=== PATIENT | female | born 1955 | race Caucasian/White ===

== ENCOUNTER 2020-02-13 11:03 | Outpatient (CLI) | payer MEDICARE, SELFPAY ==
--- NOTE | 2020-02-13 11:21 | MM_ITS ---
WS: [id number] BILATERAL DIGITAL SCREENING MAMMOGRAM WITH CAD CLINICAL INFORMATION: SCR HISTORY: Screening mammogram. Bilateral breast soreness COMPARISON: TECHNIQUE: Bilateral CC and MLO. FINDINGS: The breast are composed of extremely dense tissue, which can limit the detection of small underlying mass lesions. No suspicious focal mass, asymmetry, calcifications, or architectural distortion. No ev idence of malignancy. Lucent centered calcifications MM/[place] [id number] IMPRESSION: BI-RADS: 2-Benign FOLLOW UP: 1 Year Follow-up Recommend return to annual screening mammography.
== END 2020-02-13 11:04 | disposition home or self-care (01) ==
LOC: RADSHAW 11:08
PROVIDERS: PCP Internal Medicine; Visit Provider Internal Medicine
DX: Z12.31 Encounter for screening mammogram for malignant neoplasm of breast (principal)
CPT/HCPCS: 77067

== ENCOUNTER 2020-05-26 14:31 | Outpatient (CLI) | payer MEDICARE, SELFPAY ==
--- NOTE | 2020-05-26 14:39 | XR_ITS ---
WS: [id number] SCREENING DEXA SCAN [facility] CLINICAL INFORMATION: STATUS ASYMPTOMATIC POSTMENOPAUSAL COMPARISON: None. FINDINGS: The L1-L4 bone mineral density measures 1.085 g/cm2. This corresponds to a T score score of -0.8 and Z score of 0.8. Left femoral neck bone mineral density measures 0.911 g/cm2. This corresponds to a T score of -0.8 an d Z score of 0.5. Right femoral neck bone mineral density measures 0.880 g/cm2. This corresponds to a T score -1.0of an d Z score of 0.2. Mean femoral neck bone mineral density measures 0.896 g/cm2. This corresponds to a T score of -0.9 an d Z score of 0.4. XR/XR DEXA axial skeleton* [id number] IMPRESSION: Osteopenia at the lower end of the range. Patient's FRAX calculated 10 year probability for major osteoporotic fracture i s 10.5 % and osteoporotic hip fracture is 1.5%.
== END 2020-05-26 14:32 | disposition home or self-care (01) ==
LOC: RADWPI 14:35
PROVIDERS: PCP Internal Medicine; Visit Provider Internal Medicine
DX: Z78.0 Asymptomatic menopausal state (principal); M85.88 Other specified disorders of bone density and structure, other site
CPT/HCPCS: 77080

== ENCOUNTER 2021-03-08 16:02 | Outpatient (CLI) | payer MEDICARE, SELFPAY ==
--- NOTE | 2021-03-08 16:18 | XR_ITS ---
WS: [email or web address] CERVICAL SPINE 3 VIEWS HISTORY: PAIN IN NECK, DEGENERATIVE DISC DISEASE COMPARISON: None available. Straightening and reversal normal cervical lordosis. Reversal is centered at C5. Severe disc space na rrowing at C5-6 and moderate at C4-5 and C6-7. No fracture. Facet joints are narrowed throughout. Mild S-shaped curvature cervical spine. Lateral masses are aligned. Odontoid is intact. XR/XR cervical spine 3V* [id number] IMPRESSION: 1. Reversal of the normal cervical lordosis. 2. Moderate to severe degenerative disc disease in the mid cervical spine. Mos t significant at C5-6.
== END 2021-03-08 16:03 | disposition home or self-care (01) ==
PROVIDERS: PCP Internal Medicine; Visit Provider Internal Medicine
DX: M47.892 Other spondylosis, cervical region (principal); M54.2 Cervicalgia
CPT/HCPCS: 72040

== ENCOUNTER 2021-04-01 08:38 | Outpatient (CLI) | payer MEDICARE, SELFPAY ==
--- NOTE | 2021-04-01 08:53 | MR_ITS ---
WS: [email or web address] MRI of the cervical spine, 04/01/2021 Clinical Data: DEGENERATION OF CERVICAL INTERVERTEBRAL DISC Comparison: Cervical spine, 03/08/2021 Findings: There is loss of the normal lordotic curvature. There is disc space narrowing at C4-C5, C5-C6 and C6 -C7. The spinal cord is normal in size with no cysts or masses. There is no prevertebral swelling. No compression fractures are seen. C2-C3: No canal stenosis, disc bulge or foraminal narrowing is seen. C3-C4: No canal stenosis, disc bulge or foraminal narrowing is seen. C4-C5: There is a disc osteophyte complex bulging into the central canal. C5-C6: There is a broad-based disc osteophyte complex bulging into the central canal. C6-C7: There is a broad-based disc osteophyte complex bulging into the central canal. C7-T1: No canal stenosis, disc bulge or foraminal narrowing is seen. MR/MR cervical spin wo con* [id number] Impression: 1. Degenerative disc narrowing from C4-C5 through C6-C7. 2. Loss of normal lordotic curvature from C3-4 through C6. 3. Multilevel disc osteophyte complex bulging into the central canal from C4 th rough C7.
== END 2021-04-01 08:39 | disposition home or self-care (01) ==
LOC: RADWPI 08:41
PROVIDERS: PCP Internal Medicine; Visit Provider Internal Medicine
DX: M50.30 Other cervical disc degeneration, unspecified cervical region (principal); M25.78 Osteophyte, vertebrae
CPT/HCPCS: 72141

== ENCOUNTER 2021-05-25 13:43 | Outpatient (CLI) | payer MEDICARE, SELFPAY ==
--- NOTE | 2021-05-25 13:52 | MM_ITS ---
WS: [email or web address] BILATERAL SCREENING DIGITAL MAMMOGRAM WITH CAD HISTORY: SCREENING COMPARISON: 02/13/2020, 02/06/2019 Bilateral CC and MLO views submitted. Computer aided detection analyzed. Breast composition: The breasts are heterogeneously dense, which may obscure small masses. No suspici ous masses, microcalcifications or architectural distortion. Benign calcifications in each breast. MM/[place] [id number] IMPRESSION: BI-RADS: 2-Benign FOLLOW UP: 1 Year Follow-up
== END 2021-05-25 13:44 | disposition home or self-care (01) ==
LOC: RADSHAW 13:50
PROVIDERS: PCP Internal Medicine; Visit Provider Internal Medicine
DX: Z12.31 Encounter for screening mammogram for malignant neoplasm of breast (principal)
CPT/HCPCS: 77067

== ENCOUNTER 2022-07-13 09:08 | Outpatient (CLI) | payer MEDICARE, SELFPAY ==
--- NOTE | 2022-07-13 09:15 | MM_ITS ---
WS: [email or web address] VIEWS: MLO and CC views both breasts. 3D digital tomosynthesis is also included in this exam. Comparison made with prior exam of 10/27/2015, 12/07/2016, 12/13/2017, 02/06/2019, 02/13/2020, 05/25/2021.. Findings: There was no sign of mass, architectural distortion or suspicious calcification in either breast. He terogeneously dense breasts. MM/[place] [id number] Impression: BI-RADS: 2-Benign FOLLOW-UP: 1 Year Follow-up This mammogram was also analyzed by the Computer Aided Detection System R2 Imag e Service Correspondent.
== END 2022-07-13 09:09 | disposition home or self-care (01) ==
PROVIDERS: PCP Internal Medicine; Visit Provider Internal Medicine
DX: Z12.31 Encounter for screening mammogram for malignant neoplasm of breast (principal)
CPT/HCPCS: 77063; 77067

== ENCOUNTER → 2022-11-01 14:47 | Outpatient (BNVA) | payer MEDICARE, SELFPAY | PROVIDERS: PCP Internal Medicine; Visit Provider Dermatology | DX: L72.0 Epidermal cyst (principal); L82.1 Other seborrheic keratosis; I83.93 Asymptomatic varicose veins of bilateral lower extremities; L81.4 Other melanin hyperpigmentation; D23.71 Other benign neoplasm of skin of right lower limb, including hip; L73.8 Other specified follicular disorders; Z12.83 Encounter for screening for malignant neoplasm of skin; D22.39 Melanocytic nevi of other parts of face | CPT/HCPCS: 99213 ==

== ENCOUNTER → 2023-04-18 09:53 | Outpatient (BNVA) | payer MEDICARE, SELFPAY | PROVIDERS: PCP Internal Medicine; Visit Provider Podiatrist Foot & Ankle Surgery | DX: R22.41 Localized swelling, mass and lump, right lower limb (principal) | CPT/HCPCS: 73610; 99203 ==

== ENCOUNTER 2023-07-25 09:51 | Outpatient (CLI) | payer MEDICARE, SELFPAY ==
--- NOTE | 2023-07-25 09:59 | MM_ITS ---
WS: [email or web address] SCREENING DIGITAL TOMOSYNTHESIS MAMMOGRAM WITH CAD HISTORY: SCREENING COMPARISON: 07/13/2022 and 05/25/2021 Bilateral CC and MLO with tomosynthesis views submitted. Synthetic mammography reviewed. Computer aid ed detection analyzed. Breast composition: The breasts are heterogeneously dense, which may obscure small masses. No suspici ous masses, microcalcifications or architectural distortion. Benign RIGHT breast calcification. IMPRESSION: MM/[place] [id number] BI-RADS: 2-Benign FOLLOW UP: 1 Year Follow-up
== END 2023-07-25 09:52 | disposition home or self-care (01) ==
LOC: RAD 09:51
PROVIDERS: PCP Internal Medicine; Visit Provider Internal Medicine
DX: Z12.31 Encounter for screening mammogram for malignant neoplasm of breast (principal)
CPT/HCPCS: 77063; 77067

== ENCOUNTER 2023-09-26 14:10 | Outpatient (CLI) | payer MEDICARE, SELFPAY ==
--- NOTE | 2023-09-26 14:17 | XR_ITS ---
WS: [email or web address] Left knee, 4 views, 09/26/2023 Clinical Data: PAIN IN L KNEE Comparison: Left knee, 01/10/2015 Findings: No fractures or dislocations are seen. There is medial joint compartment narrowing with small spurs o f the medial femoral condyle and medial tibial plateau. The patella shows a small posterior superior spur. The soft tissues are unremarkable. XR/XR knee LT 4V [id number] Impression: Minimal osteoarthritis of the left knee. Kellgren-Sumeet Classification: grade 2 (minimal): definite osteophytes and p ossible joint space narrowing
== END 2023-09-26 14:11 | disposition home or self-care (01) ==
LOC: RAD 14:15
PROVIDERS: PCP Internal Medicine; Visit Provider Internal Medicine
DX: M17.12 Unilateral primary osteoarthritis, left knee (principal); M25.562 Pain in left knee
CPT/HCPCS: 73564

== ENCOUNTER 2023-10-23 14:30 | Outpatient (CLI) | payer MEDICARE, SELFPAY | END 2023-10-23 14:31 | disposition home or self-care (01) | LOC: SLEEP 14:46 | PROVIDERS: PCP Internal Medicine; Visit Provider Internal Medicine | DX: G47.33 Obstructive sleep apnea (adult) (pediatric) (principal) | CPT/HCPCS: G0399 ==

== ENCOUNTER → 2023-11-01 08:48 | Outpatient (BNVA) | payer MEDICARE, SELFPAY | PROVIDERS: PCP Internal Medicine; Visit Provider Nurse Practitioner Family | DX: L73.8 Other specified follicular disorders (principal); L72.0 Epidermal cyst; L82.1 Other seborrheic keratosis | CPT/HCPCS: 99212 ==

== ENCOUNTER → 2023-12-04 06:55 | Outpatient (BNVA) | payer MEDICARE, SELFPAY | PROVIDERS: PCP Internal Medicine; Visit Provider Podiatrist Foot & Ankle Surgery | DX: M19.071 Primary osteoarthritis, right ankle and foot; M21.611 Bunion of right foot | CPT/HCPCS: 73630; 99213 ==

== ENCOUNTER → 2023-12-12 09:01 | Outpatient (BNVA) | payer MEDICARE, SELFPAY | PROVIDERS: PCP Internal Medicine; Visit Provider Dermatology | DX: D48.5 Neoplasm of uncertain behavior of skin (principal) | CPT/HCPCS: 11404; 12032 ==

== ENCOUNTER 2024-07-25 09:58 | Outpatient (CLI) | payer MEDICARE, SELFPAY ==
--- NOTE | 2024-07-25 10:05 | MM_ITS ---
WS: [email or web address] BILATERAL SCREENING DIGITAL TOMOSYNTHESIS MAMMOGRAM WITH CAD HISTORY: SCREENING COMPARISON: 07/25/2023, 08/10/2022 Bilateral CC and MLO views with tomosynthesis and synthetic mammography submitted. Computer aided detection analyzed. Breast composition: The breasts are heterogeneously dense, which may obscure small masses. No suspicious masses, microcalcifications or architectural distortion. Benign calcification upper outer quadrant RIGHT breast. MM/MM scr BI tomosynthesis [id number] IMPRESSION: BI-RADS: 2 - Benign FOLLOW UP: 1 Year Follow-up
== END 2024-07-25 09:59 | disposition home or self-care (01) ==
LOC: RAD 09:59
PROVIDERS: PCP Internal Medicine; Visit Provider Internal Medicine
DX: Z12.31 Encounter for screening mammogram for malignant neoplasm of breast (principal); R92.333 Mammographic heterogeneous density, bilateral breasts; R92.1 Mammographic calcification found on diagnostic imaging of breast
CPT/HCPCS: 77063; 77067

== ENCOUNTER → 2024-12-29 09:41 | Outpatient (BNVA) | payer MEDICARE, SELFPAY | PROVIDERS: PCP Internal Medicine; Visit Provider Nurse Practitioner Family | DX: L21.8 Other seborrheic dermatitis (principal); L82.1 Other seborrheic keratosis; D22.61 Melanocytic nevi of right upper limb, including shoulder; I83.93 Asymptomatic varicose veins of bilateral lower extremities; L72.0 Epidermal cyst; L82.0 Inflamed seborrheic keratosis; L29.89 Other pruritus; Z78.9 Other specified health status; L53.8 Other specified erythematous conditions; R20.8 Other disturbances of skin sensation | CPT/HCPCS: 17110; 99213 ==

== ENCOUNTER → 2025-01-05 06:54 | Outpatient (BNVA) | payer MEDICARE, SELFPAY | PROVIDERS: PCP Internal Medicine; Visit Provider Podiatrist Foot & Ankle Surgery | DX: R22.41 Localized swelling, mass and lump, right lower limb (principal); M79.671 Pain in right foot; M19.071 Primary osteoarthritis, right ankle and foot; M21.611 Bunion of right foot; L60.3 Nail dystrophy; M79.89 Other specified soft tissue disorders | CPT/HCPCS: 73610; 99214 ==

== ENCOUNTER 2025-02-05 11:19 | Outpatient (CLI) | payer MEDICARE, SELFPAY ==
--- NOTE | 2025-02-05 11:45 | MRR_ITS ---
PROCEDURE INFORMATION: Exam: MR Right Lower Extremity Joint Without Contrast; Ankle Exam date and time: 02/05/2025 11:48 AM Age: 69 years old Clinical indication: Other: Soft tissue mass of the right lateral ankle, ; additional info: Soft tissue mass of the right lateral ankle, rule out lipoma versus neuritis TECHNIQUE: Imaging protocol: Magnetic resonance imaging of the right lower extremity without contrast. Exam focused on the ankle. COMPARISON: CR XR ankle RT min 3V* [id number] 01/05/2025 7:30 AM FINDINGS: Bones/joints: Normal osseous alignment. No acute fracture. Moderate plantar calcaneal enthesophyte formation is identified. Mild degenerative subcortical cystic changes and osteophyte formation are noted at the proximal 2nd through 4th metatarsals and in the distal aspect of the middle and lateral cuneiforms. Mild osteophyte formation at the talonavicular joint is present. Mild patchy bone marrow edema is noted in the 2nd through 4th metatarsal bases and in the cuneiforms, distal cuboid and navicular. No significant joint effusion. No focal cartilage defect is identified. LIGAMENTS: Distal tibiofibular syndesmosis: Unremarkable. No tear. Anterior talofibular ligament: Unremarkable. No tear. Posterior talofibular ligament: Unremarkable. No tear. Calcaneofibular ligament: Unremarkable. No tear. Deltoid ligament complex: Unremarkable. No tear. TENDONS: Flexor tendons of foot: Unremarkable as visualized. Tibialis posterior tendon: Unremarkable as visualized. Peroneal tendons: Mild intrasubstance/longitudinal tearing of the proximal to mid peroneus brevis tendon is noted. Extensor tendons of foot: Unremarkable as visualized. Tibialis anterior tendon: Unremarkable as visualized. Achilles tendon: Mild intrasubstance abnormal increased signal intensity in the Achilles tendon is present. There is moderate edema in the pre Achilles fat pad. Tarsal canal (Sinus tarsi): Mild edema in the sinus tarsi is present. Tarsal tunnel: Unremarkable. Soft tissues: Mild soleus muscle edema is identified. There is ovoid prominence of normal-appearing subcutaneous fat along the lateral aspect of the ankle anterior to the distal fibula measuring 3.3 x 1.6 x 4.0 cm, for example on series 1101, image 17, however, this region appears unencapsulated and contiguous with the adjacent subcutaneous fat. Plantar fascia: Plantar fascia is unremarkable. MR/MR ankle RT wo con* [id number] IMPRESSION: 1. There is a provided history of a soft tissue mass in the lateral aspect of the ankle. There is an ovoid region of fat signal intensity in this region without well-defined margins, likely representing a normal distribution of subcutaneous fat. Assessment of the soft tissues can be limited without intravenous contrast. 2. Mild Achilles tendinosis. 3. Mild soleus muscle edema is noted, which can be related to strain. Less likely etiologies include neuropathic changes or myositis. 4. Primary osteoarthritic changes of the midfoot and second through 4th tarsometatarsal joints. 5. Longitudinal tearing of the peroneus brevis tendon. 6. Mild edema in the sinus tarsi is identified. 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
== END 2025-02-05 11:20 | disposition home or self-care (01) ==
LOC: RAD 11:19
PROVIDERS: PCP Internal Medicine; Visit Provider Podiatrist Foot & Ankle Surgery
DX: R22.41 Localized swelling, mass and lump, right lower limb (principal)
CPT/HCPCS: 73721

== ENCOUNTER → 2025-02-23 08:19 | Outpatient (BNVA) | payer MEDICARE, SELFPAY | PROVIDERS: PCP Internal Medicine; Visit Provider Podiatrist Foot & Ankle Surgery | DX: M79.671 Pain in right foot (principal); M19.071 Primary osteoarthritis, right ankle and foot; M21.611 Bunion of right foot; L60.3 Nail dystrophy; M79.89 Other specified soft tissue disorders | CPT/HCPCS: 99214 ==

== ENCOUNTER → 2025-03-06 09:25 | Outpatient (BNVA) | payer MEDICARE, SELFPAY | PROVIDERS: PCP Internal Medicine; Visit Provider Nurse Practitioner Family | DX: L57.8 Other skin changes due to chronic exposure to nonionizing radiation (principal); D48.5 Neoplasm of uncertain behavior of skin | CPT/HCPCS: 11104; 99213 ==

== ENCOUNTER → 2025-03-17 15:13 | Outpatient (BNVA) | payer MEDICARE, SELFPAY | PROVIDERS: PCP Internal Medicine; Visit Provider Nurse Practitioner Family | DX: Z48.02 Encounter for removal of sutures (principal) | CPT/HCPCS: 99212 ==

== ENCOUNTER 2025-04-21 12:43 | Outpatient (CLI) | payer MEDICARE, SELFPAY ==
--- NOTE | 2025-04-21 12:46 | XR_ITS ---
WS: [email or web address] SCREENING DEXA SCAN [facility] CLINICAL INFORMATION: ASYMPTOMATIC POSTMENOPAUSAL COMPARISON: 2020 FINDINGS: The L1-L4 bone mineral density measures 1.157 g/cm2. This corresponds to a T score score of -0.2 and Z score of 1.5. Left femoral neck bone mineral density measures 0.901 g/cm2. This corresponds to a T score of -0.8 and Z score of 0.7. Right femoral neck bone mineral density measures 0.863 g/cm2. This corresponds to a T score -1.1of and Z score of 0.4. Mean femoral neck bone mineral density measures 0.882 g/cm2. This corresponds to a T score of -1.0 and Z score of 0.5. XR/XR DEXA axial skeleton* [id number] IMPRESSION: Normal bone mineralization lumbar spine. Osteopenia femoral necks. Patient's FRAX calculated 10 year probability for major osteoporotic fracture i s 11.2% and osteoporotic hip fracture is 2.1%. Bone density lumbar spine increased 6.6% Bone density femoral necks decreased -1.6%
== END 2025-04-21 12:44 | disposition home or self-care (01) ==
LOC: RAD 12:44
PROVIDERS: PCP Internal Medicine; Visit Provider Internal Medicine
DX: Z13.820 Encounter for screening for osteoporosis (principal); Z78.0 Asymptomatic menopausal state; M85.89 Other specified disorders of bone density and structure, multiple sites
CPT/HCPCS: 77080